=== PATIENT | male | born 1990 | race Caucasian/White ===

== ENCOUNTER → 2020-03-18 | Day surgery (SDC) | payer BC, OTHER ==
[2020-03-12 14:56] VITALS: BMI 27.2
[~2020-03-18] MED LIST: MIDAZOLAM HCL 2 MG/2 ML SINGLE DOSE VIAL ONE
[2020-03-18 08:49] VITALS: TEMP 98
[2020-03-18 09:23] LABS: BASO % 0.5 % (0-2.0); HEMATOCRIT 42.8 % (35.4-49); HEMOGLOBIN 14.4 GM/dL (11.7-16.9); MCH 28.9 pg (25.7-33.7); MCHC 33.7 g/dl (32.0-35.9); MEAN CELL VOLUME 85.7 fl (80-96); NEUT % 56.5 % (42.8-82.8); PLATELET COUNT 302 K/MM3 (134-434); RBC 4.99 M/mm3 (4.00-5.60)
[2020-03-18 09:33] VITALS: BP 110/68; PULSE 71
[2020-03-18 09:54] LABS: CHLORIDE 107 mmol/L (98-107); POTASSIUM 4.3 mmol/L (3.5-5.1); SODIUM 145 mmol/L (136-145)
[2020-03-18 09:56] LABS: ALBUMIN 3.8 g/dl (3.4-5.0); ANION GAP 6 MMOL/L (8-16); CALCIUM 9.3 mg/dL (8.5-10.1); CO2 32 mmol/L (21-32); GLUCOSE,RANDOM 89 mg/dL (74-106)
[2020-03-18 09:57] LABS: BLOOD UREA NITROGEN 13.6 mg/dL (7-18)
[2020-03-18 09:59] LABS: CREATININE 0.8 mg/dL (0.55-1.3); IRON SERUM 133 ug/dL (50-175); SGOT/AST 20 U/L (15-37); SGPT/ALT 43 U/L (13-61)
[2020-03-18 10:00] LABS: TOTAL IRON BINDING CAPACITY 302 ug/dL (250-450)
[2020-03-18 10:01] LABS: BILIRUBIN,TOTAL 0.4 mg/dL (0.2-1); TOT PROT 6.9 g/dl (6.4-8.2)
[2020-03-18 10:02] LABS: ALK PHOS 50 U/L (45-117)
== END | disposition home or self-care (01) ==
LOC: JASU-ENDO 04:25
PROVIDERS: ATTEND Internal Medicine Gastroenterology
PROC: 0DBL8ZX Excision of Transverse Colon, Via Natural or Artificial Opening Endoscopic, Diagnostic (ICD-10-PCS; 2020-03-18)
PROC: 0DBN8ZX Excision of Sigmoid Colon, Via Natural or Artificial Opening Endoscopic, Diagnostic (ICD-10-PCS; 2020-03-18)
PROC: 0DBP8ZX Excision of Rectum, Via Natural or Artificial Opening Endoscopic, Diagnostic (ICD-10-PCS; 2020-03-18)
PROC: 0DBB8ZX Excision of Ileum, Via Natural or Artificial Opening Endoscopic, Diagnostic (ICD-10-PCS; 2020-03-18)
PROC: 0DBH8ZX Excision of Cecum, Via Natural or Artificial Opening Endoscopic, Diagnostic (ICD-10-PCS; 2020-03-18)
PROC: 0DBK8ZX Excision of Ascending Colon, Via Natural or Artificial Opening Endoscopic, Diagnostic (ICD-10-PCS; principal; 2020-03-18 08:00)
DX: K51.80 Other ulcerative colitis without complications (principal); K64.8 Other hemorrhoids
CPT/HCPCS: 36415; 80053; 82306; 82728; 83540; 83550; 85025; 86140; 88305-TC